=== PATIENT | female | born 1965 | race Caucasian/White ===

== ENCOUNTER 2019-06-18 12:11 | Outpatient (CLI) | payer BC, SELFPAY ==
--- NOTE | ~2019-06-18 | US_ITS ---
EXAMINATION: US right upper quadrant DATE: 06/18/2019 12:47 INDICATION: Right upper quadrant abdominal pain. Biliary a. TECHNIQUE: Multiple grayscale and Doppler ultrasound images of the abdomen were obtained. COMPARISON: CT abdomen and pelvis dated 08/01/2017 FINDINGS: The pancreatic head and body are normal in appearance. The pancreatic tail is not visualized. Main p ancreatic duct measures 2 mm in diameter at the body of the pancreas which is within normal limits. L iver has normal echogenicity and contour, with a smooth surface. No liver lesion identified. No intra hepatic biliary duct dilation suspected. Portal venous flow was seen in the hepatopetal, normal direc tion and has normal Doppler waveform. Gallbladder is not visualized and reportedly surgically absent. Common bile duct measures 5 mm diameter which is normal. Visualized portions of the right kidney dem onstrates normal contour and echogenicity with no hydronephrosis. IMPRESSION: 1. Status post cholecystectomy. Otherwise normal right upper quadrant ultrasound. Reviewed, dictated and finalized at location A. IMPRESSION: 1. Status post cholecystectomy. Otherwise normal right upper quadrant lucero callahan
[2019-06-18 13:11] LABS: Hematocrit 41.4 % (37.0-47.0); Mean Corpuscular HGB Conc 33.8 g/dl (32-36); Mean Corpuscular Hemoglobin 32.3 pg (26-34); Mean Corpuscular Volume 95.6 fl (80-100); Mean Platelet Volume 8.6 fl (7.4-10.4); Platelet Count Result 253 k/mm3 (150-375); Red Blood Count 4.33 M/mm3 (4.2-5.4); Red Cell Distribution Width 12.4 % (11.5-14.5); White Blood Count 6.4 K/mm3 (4.5-10.0)
[2019-06-18 13:43] LABS: Alanine Aminotransferase 30 U/L (4-35); Alkaline Phosphatase 67 U/L (38-126); Aspartate Amino Transferase 38 U/L (14-36); Bilirubin,Total 0.3 mg/dL (0.2-1.3); Blood Urea Nitrogen 13 mg/dL (7-17); Calcium 8.8 mg/dL (8.4-10.2); Carbon Dioxide 32 mmol/L (22-30); Chloride 102 mmol/L (98-107); Estimated Glomerular Filt Rate > 60; Glucose 76 mg/dL (65-105); Potassium 3.9 mmol/L (3.4-5.0); Sodium 137 mmol/L (137-145)
[2019-06-18 14:58] LABS: Hepatitis B Surface Antigen Negative (Negative)
[2019-06-18 15:02] LABS: Lipase 64 U/L (23-300)
[2019-06-18 15:03] LABS: HAV RESULT Negative (Negative); Hepatitis B Core IgM Result Negative (Negative)
[2019-06-18 15:15] LABS: Hepatitis C Virus Antibody Negative (Negative)
== END 2019-06-18 12:12 | disposition home or self-care (01) ==
PROVIDERS: PCP Family Medicine; Visit Provider Family Medicine
DX: R10.9 Unspecified abdominal pain (principal); R82.2 Biliuria
CPT/HCPCS: 36415; 76705; 80048; 80074; 80076; 83690; 85027

== ENCOUNTER 2020-06-10 13:12 | Outpatient (CLI) | payer BC, SELFPAY ==
--- NOTE | ~2020-06-10 | XR_ITS ---
EXAMINATION: XR finger 3rd RT min 2V EXAM DATE: 06/10/2020 13:37 INDICATION: Cystic mass distal right 3rd finger. Mass posterior to the distal interphalangeal joint. TECHNIQUE: Right 3rd finger frontal, lateral and oblique projections obtained and reviewed. There is no prior study for comparison. FINDINGS: There is large focal rounded soft tissue region over the distal interphalangeal joint witho ut any pressure erosions on the bones. There is moderate arthritis of the distal interphalangeal join t, most likely primary osteoarthritis. No radiopaque foreign bodies identified. IMPRESSION: Focal swelling or mass dorsal to the right 3rd DIP joint which has moderate osteoarthriti s. Reviewed, dictated and finalized at location A. IMPRESSION: Focal swelling or mass dorsal to the right 3rd DIP joint which has moderate osteoarthritis.
== END 2020-06-10 13:13 | disposition home or self-care (01) ==
LOC: ANHIMG 13:24
PROVIDERS: PCP Family Medicine; Visit Provider Plastic Surgery
DX: R22.31 Localized swelling, mass and lump, right upper limb (principal)
CPT/HCPCS: 73140

== ENCOUNTER → 2020-08-06 06:59 | Outpatient (CLI) | payer BC, SELFPAY ==
--- NOTE | ~2020-08-06 | MR_ITS ---
EXAMINATION: MR hand RT wo con DATE: 08/06/2020 08:13 INDICATION: Pain and swelling at the right third digit TECHNIQUE: Magnetic resonance imaging (MRI) of the right hand was performed without intravenous contr ast to include the metacarpals and digits. Sequences included sagittal, coronal, and axial proton T1- weighted FSE and T2-weighted FS FSE. COMPARISON: Right hand radiographs dated 06/10/2020 FINDINGS: There is prominent soft tissue swelling centered about the third distal interphalangeal joint. There is severe joint space loss with erosions at the base of the distal phalanx and head of the middle pha lanx. Loss of T1 marrow fat signal throughout all but the tuft of the distal phalanx and at the head and distal diaphysis of the middle phalanx. Large T2 hyperintense joint effusion which probably diste nds the joint capsule. The constellation of findings is consistent with septic arthritis and osteomye litis. Well-defined 6 x 4 x 3 mm T2 hyperintense, T1 isointense lesion at the neck of the first proxi mal phalanx with suggestion of a thin neck extending to the dorsal aspect of the distal articular billy face suggesting an intraosseous ganglion cyst. Immediately surrounding marrow signal is normal. Gem l marrow signal throughout the remainder of the bones. No fractures. Mild polyarticular osteoarthriti s with typical distribution at the radial aspect of the carpus and at multiple predominantly distal i nterphalangeal joints. No other joint effusions. The flexor and extensor tendons are normal. The talia ateral ligament complexes at the third distal interphalangeal joint are not clearly defined and may h ave been eroded by the septic process. The remainder of the collateral ligament complex at the metaca rpophalangeal and interphalangeal joints remain normal. IMPRESSION: 1. Septic arthritis at the third distal interphalangeal joint with osteomyelitis involving the majori ty of the distal phalanx and distal half of the middle phalanx. Dr. Morrissey discussed these findings with Dr. Sneed at 4:05 PM. 2. 6 x 4 x 3 mm well-defined T2 hyperintense lesion at the neck of the right first proximal phalanx w hich appears most likely to represent an intraosseous ganglion cyst. Consider correlation with plain radiographs. Reviewed, dictated and finalized at location A. IMPRESSION: 1. Septic arthritis at the third distal interphalangeal joint with osteomyeliti s involving the majority of the distal phalanx and distal half of the middle ph alanx. Dr. Morrissey discussed these findings with Dr. Sneed at 4:05 PM. 2. 6 x 4 x 3 mm well-defined T2 hyperintense lesion at the neck of the right fi rst proximal phalanx which appears most likely to represent an intraosseous lilia glion cyst. Consider correlation with plain radiographs.
== END ==
DX: M79.646 Pain in unspecified finger(s) (principal); M00.9 Pyogenic arthritis, unspecified
CPT/HCPCS: 73218

== ENCOUNTER → 2021-03-03 08:23 | Outpatient (CLI) | payer BC, SELFPAY ==
[2021-03-03 14:15] LABS: Influenza Control Positive
[2021-03-03 20:10] LABS: SARS-CoV-2 RNA PCR Negative
== END ==
PROVIDERS: PCP Family Medicine; Visit Provider Physician Assistant
DX: R68.89 Other general symptoms and signs (principal); Z20.822 Contact with and (suspected) exposure to COVID-19
CPT/HCPCS: 87804; C9803; U0003; U0005

== ENCOUNTER 2021-08-07 13:20 | Outpatient (CLI) | payer BC, SELFPAY ==
--- NOTE | ~2021-08-07 | XR_ITS ---
XR knee RT min 4V DATE: 08/07/2021 13:36 INDICATION: Injury, pain TECHNIQUE: 4 views COMPARISON: None FINDINGS: There is mild tricompartment periarticular spurring consistent with mild osteoarthritis. No fracture or dislocation or significant joint effusion is evident. No radiopaque intra-articular lo ose body or chondrocalcinosis. No periosteal reaction or bone destruction. IMPRESSION: Mild tricompartment osteoarthritis Reviewed, dictated and finalized at location A.
== END 2021-08-07 13:21 | disposition home or self-care (01) ==
PROVIDERS: PCP Family Medicine; Visit Provider Physician Assistant
DX: S89.90XA Unspecified injury of unspecified lower leg, initial encounter (principal); X58.XXXA Exposure to other specified factors, initial encounter; M17.11 Unilateral primary osteoarthritis, right knee
CPT/HCPCS: 73564

== ENCOUNTER 2023-05-24 12:27 | Outpatient (CLI) | payer BC, SELFPAY ==
--- NOTE | ~2023-05-24 | XR_ITS ---
EXAMINATION:XR cervical spine 4-5V DATE: 05/24/2023 12:59 INDICATION: Neck pain TECHNIQUE: AP, lateral, bilateral oblique and odontoid views of the cervical spine are provided. COMPARISON: 05/17/2013 FINDINGS: Bone alignment is normal. There are changes of anterior fusion from C5 through C7. The odon toid process is intact. No fracture is identified. There is mild loss of intervertebral disc space he ight at C4-5. The vertebral body heights are maintained. There is multilevel moderate facet joint ost eoarthritis. There is moderate bilateral facet joint osteoarthritis at C4-5. Prevertebral soft tissue s are normal. IMPRESSION: 1. Surgical changes and mild cervical spondylosis without acute findings. Reviewed, dictated and finalized at location F.
== END 2023-05-24 12:28 | disposition home or self-care (01) ==
PROVIDERS: PCP Family Medicine; Visit Provider Physician Assistant
DX: M47.892 Other spondylosis, cervical region (principal)
CPT/HCPCS: 72050

== ENCOUNTER 2024-01-28 15:20 | Emergency (ER) | payer BC, SELFPAY ==
[2024-01-28 15:31] VITALS: BP 142/80; PULSE 72; RESP 14; TEMP 36.3; O2SAT 100
--- NOTE | 2024-01-28 18:00 | PC.NURSE ---
PT DECIDED TO LEAVE AFTER TRIAGE OCCURED. PT AMBULATORY FROM ED WITH STEADY GAIT
== END 2024-01-28 18:11 | disposition left against medical advice (07) ==
PROVIDERS: PCP Family Medicine
DX: R11.2 Nausea with vomiting, unspecified (principal)
CPT/HCPCS: 99199

== ENCOUNTER 2024-01-30 08:06 | Emergency (ER) | payer BC, SELFPAY ==
--- NOTE | ~2024-01-30 | CT_ITS ---
Non-contrast CT scan of the Abdomen and Pelvis Clinical indication: Abdominal pain Technique: 2.5 mm axial scans were obtained through the abdomen and pelvis without intravenous or or al contrast. Dose reduction technique was used on this scan by utilizing automated exposure control a nd iterative reconstruction technique. The dose-length product (DLP) was 703.75 mGy-cm. Findings: Images through the lung bases reveal no abnormalities. There is no evidence of renal or ureteral calculi. The kidneys and the ureters are nondilated. The liver, spleen, pancreas, and adrenals appear normal. Cholecystectomy clips are present. There is no aortic aneurysm. There is no evidence of bowel obstruction. Evidence of prior bariatric surgery or fundoplication. Images through the pelvis were performed. There is no evidence of ascites or lymphadenopathy. Urinary bladder unremarkable. No pelvic mass seen. Impression: No acute abnormalities seen. Reviewed, dictated and finalized at [facility]. ER MOUTH [employer]UTTER Impression: No acute abnormalities seen.
[2024-01-30 08:24] LABS: Basophils Percent Auto 0.5 % (0.2-1.2); Eosinophils Absolute Auto 0.1 K/mm3 (0-0.3); Eosinophils Percent Auto 0.8 % (0-4.4); Hemoglobin 15.5 g/dL (12.0-15.0); Immature Granulocyte Absolute 0.02 K/mm3 (0.00-0.031); Immature Granulocyte Percent A 0.3 % (0-0.5); Lymphocytes Absolute Auto 1.89 K/mm3 (0.9-3.2); Lymphocytes Percent Auto 29.8 % (18.3-44.2); Mean Corpuscular HGB Conc 33.7 g/dl (32-36); Mean Corpuscular Hemoglobin 32.6 pg (26-34); Mean Corpuscular Volume 96.8 fl (80-100); Mean Platelet Volume 8.8 fl (7.4-10.4); Monocytes Absolute Auto 0.5 K/mm3 (0.1-0.6); Monocytes Percent Auto 7.2 % (2.6-8.5); Neutrophils Absolute Auto 3.9 K/mm3 (1.3-6.7); Neutrophils Percent Auto 61.4 % (45.5-73.1); Platelet Count Result 297 k/mm3 (150-375); Red Blood Count 4.75 M/mm3 (4.2-5.4); Red Cell Distribution Width 12.1 % (11.5-14.5); White Blood Count 6.4 K/mm3 (4.5-10.0)
[2024-01-30 08:30] VITALS: BP 135/79; PULSE 98; RESP 20; TEMP 36.4; O2SAT 100
[2024-01-30 08:37] LABS: Alanine Aminotransferase 27 U/L (6-35); Albumin Level 4.7 g/dL (3.5-5.1); Alkaline Phosphatase 78 U/L (38-126); Anion Gap 8 mmol/L (4-12); Aspartate Amino Transferase 35 U/L (14-36); Bilirubin,Total 0.8 mg/dL (0.2-1.3); Blood Urea Nitrogen 11 mg/dL (7-17); Carbon Dioxide 26 mmol/L (22-30); Chloride 105 mmol/L (98-107); Estimated CRCL calculation 60 ml/min; Estimated Glomerular Filt Rate > 60; Glucose 118 mg/dL (65-110); Lipase 191 U/L (23-300); Potassium 3.8 mmol/L (3.4-5.0); Sodium 139 mmol/L (137-145)
[2024-01-30 09:20] VITALS: BP 127/78; PULSE 78; RESP 15; O2SAT 100
[2024-01-30] MEDS: FAMOTIDINE 20 MG/2 ML VIAL IV PUSH (09:51)
[2024-01-30] MEDS: diphenhydrAMINE HCl INJ 50 MG/ML VIAL 25 MG IV PUSH (09:51)
[2024-01-30] MEDS: SODIUM CHLORIDE 0.9% IV 1,000 ML 999 ML IV CONT (09:51)
[2024-01-30] MEDS: METOCLOPRAMIDE HCL INJ 10 MG/2 ML VIAL IV PUSH (09:51)
--- NOTE | 2024-01-30 10:06 | ED_ITS ---
HPI - Abdominal Pain General Chief Complaint: Abdominal Pain Stated Complaint: vomiting, back pain, abd pain Time Seen by Provider: 01/30/24 09:02 History of Present Illness HPI narrative: Patient is a 58-year-old female who presents to the ER with right flank,, and abdominal pain. She reports her symptoms started on . Patient endorses a history of depression, cervical back surgery, gallbladder removal, breast cancer, and a gastric sleeve. She denies any recent t emperatures, chest pain, shortness of breath, signs/symptoms of recent infection, urinary symptoms. Patient recently started semaglutide and is concerned her symptoms may be related to that. Related Data Home Medications Medication Instructions Recorded Confirmed anastrozole 1 mg tablet 1 mg PO DAILY 04/10/20 12/19/23 d-mannose ea PO 04/10/20 12/19/23 hydroxychloroquine 200 mg tablet 200 mg PO DAILY 04/10/20 12/19/23 loratadine 10 mg tablet (Claritin) 10 mg PO DAILY 04/10/20 12/19/23 multivitamin 1 tablet PO DAILY 04/10/20 12/19/23 zoledronic acid 5 mg/100 mL in IV [id number] 06/09/20 12/19/23 mannitol 5 %-water intravenous piggybck (Reclast) lamotrigine 100 mg tablet 100 mg PO DAILY 04/20/23 12/19/23 fluoxetine 10 mg capsule 40 mg PO DAILY 12/19/23 12/19/23 venlafaxine 25 mg tablet 150 mg PO DAILY 12/19/23 12/19/23 Allergies Allergy/AdvReac Type Severity Reaction Status Date / Time iodine Allergy Unknown unknown Verified 01/30/24 08:28 Review of Systems Review of Systems: All systems reviewed & are unremarkable except as noted in HPI and below PMFSH Past Medical History Medical History Breast cancer Breast cancer Dizziness Fibromyalgia Localized swelling of right upper extremity Memory loss Prediabetes Recurrent UTI Surgical History Surgical History H/O gastric sleeve H/O mastectomy Post-lymphadenectomy lymphedema of arm Family History Family History Mother Family history of diabetes mellitus in first degree relative Sibling Family history of malignant neoplasm of breast in first degree relative Social History Social History Years smoked: 16 Smoking status: Former smoker Tobacco type: cigarettes Second hand tobacco smoke exposure: No Smoking end date: 02/28/94 Alcohol intake: current Drinks per week: 3 Alcohol use details: wine Substance use: never Substance use type: does not use Lack of Transportation: No Lack of Food: Never True Current Housing: I Have Housing Concerned About Future Housing: No Difficulty Paying Gas/Electric Bills: No Difficulty Paying for Meds: No Currently Unemployed: No Education: Bachelor's Degree Difficulty w/ Childcare or Family Care: No Living arrangements: with family Spiritual care concerns: No Agree to blood products: Yes Exam Narrative: GENERAL: Well appearing, well-nourished, non-toxic, in mild acute distress d/t pain. HEAD: Normocephalic, atraumatic. NECK: Supple. No adenopathy, no masses. RESPIRATORY: Airway patent, respirations nonlabored. Clear to auscultation bilaterally, no rales, rhonchi, wheezing. CARDIOVASCULAR: Regular rate and rhythm without murmurs, rubs, or gallops. Peripheral pulses 2+ and equal bilaterally. ABDOMINAL: Soft, tender bilateral lower quadrants with palpation, nondistended, no hepatosplenomegaly. Normoactive BS. MUSCULOSKELETAL: Moves all extremities. Strength/ROM intact without gross deformities. SKIN: Warm, dry, normal color. No rashes. NEURO: A&O X3. Speech clear. Cranial nerves II-XII grossly intact. No ataxic movements. PSYCHIATRIC: Appropriate mood and affect. Normal interaction. Course Vital Signs Vital signs: Vital Signs Temperature 36.4 C L 01/30/24 08:30 Pulse Rate 98 01/30/24 08:30 Respiratory Rate 20 01/30/24 08:30 Blood Pressure 135/79 01/30/24 08:30 Pulse Oximetry 100 01/30/24 08:30 Oxygen Delivery Room Air 01/30/24 08:30 Temperature 36.4 C L 01/30/24 08:30 Pulse Rate 78 01/30/24 09:20 Respiratory Rate 15 01/30/24 09:20 Blood Pressure 127/78 12/02/24 09:20 Pulse Oximetry 100 01/30/24 09:20 Oxygen Delivery Room Air 01/30/24 08:30 MDM - Abdominal Pain MDM Narrative Medical decision making narrative: Patient is a 58-year-old female who presents to the ER with right flank,, and abdominal pain. She reports her symptoms started on . Patient endorses a history of depression, cervical back surgery, gallbladder removal, breast cancer, and a gastric sleeve. She denies any recent temperatures, chest pain, shortness of breath, signs/symptoms of recent infection, urinary symptoms. Patient recently started semaglutide and is concerned her symptoms may be related to that. Labs Ordered: CBC, CMP, lipase, UA, COVID/flu, lactic acid Imaging Ordered: CT abdomen/pelvis without contrast Results: Pt's lactic acid was 3.0, so 1L NS IV bolus will be given. Pt's other bloodwork and urinalysis were unremarkable. Diagnosis: mild dehydration leading to back pain/abdominal pain Patient Education/Shared MDM: Results shared with the patient. She and her are in agreement with plan to discharge home. Patient will be given a prescription for Bentyl and Zofran and advised to drink lots of water. She and her verbalize understanding of plan. 1145-Repeat lactic acid was 0.9, which is WNL. Pt will be discharged home at this time. Differential Diagnosis Differential diagnosis: Likely abdominal pain, acute appendicitis, calculus of kidney, constipation, diverticulitis, gastroenteritis, pancreatitis and small bowel obstruction Lab Data Attestation: I reviewed the patient's lab results. 01/30/24 08:18 01/30/24 08:18 Labs: Lab Results 01/30/24 01/30/24 01/30/24 Range/Units 08:18 09:32 10:35 WBC 6.4 (4.5-10.0) K/mm3 RBC 4.75 (4.2-5.4) M/mm3 Hgb 15.5 H (12.0-15.0) g/dL Hct 46.0 (37.0-47.0) % MCV 96.8 (80-100) fl MCH 32.6 (26-34) pg MCHC 33.7 (32-36) g/dl RDW 12.1 (11.5-14.5) % Plt Count 297 (150-375) k/mm3 MPV 8.8 (7.4-10.4) fl Immature Gran % (Auto) 0.3 (0-0.5) % Neut % (Auto) 61.4 (45.5-73.1) % Lymph % (Auto) 29.8 (18.3-44.2) % [place] % (Auto) 7.2 (2.6-8.5) % Eos % (Auto) 0.8 (0-4.4) % Baso % (Auto) 0.5 (0.2-1.2) % Lymph # (Auto) 1.89 (0.9-3.2) K/mm3 [place] # (Auto) 0.5 (0.1-0.6) K/mm3 Eos # (Auto) 0.1 (0-0.3) K/mm3 Baso # (Auto) 0.0 (0.0-0.1) K/mm3 Abs Immat Gran (auto) 0.02 (0.00-0.031) K/mm3 Absolute Neuts (auto) 3.9 (1.3-6.7) K/mm3 Absolute Nucleated RBC 0.000 (0.0-0.012) K/mm3 Nucleated RBC % 0.0 (0.0-0.2) % Sodium 139 (137-145) mmol/L Potassium 3.8 (3.4-5.0) mmol/L Chloride 105 (98-107) mmol/L Carbon Dioxide 26 (22-30) mmol/L Anion Gap 8 (4-12) mmol/L BUN 11 (7-17) mg/dL Creatinine 0.90 (0.7-1.0) mg/dL Estim Creat Clear Calc 60 ml/min Estimated GFR > 60 (59 - ) Glucose 118 H (65-110) mg/dL Lactic Acid 3.0 H (0.7-2.0) mmol/L Calcium 9.0 (8.4-10.2) mg/dL Total Bilirubin 0.8 (0.2-1.3) mg/dL AST 35 (14-36) U/L ALT 27 (6-35) U/L Alkaline Phosphatase 78 (38-126) U/L Total Protein 8.0 (6.3-8.2) g/dL Albumin 4.7 (3.5-5.1) g/dL Lipase 191 (23-300) U/L Urine Color Yellow (Yellow) Urine Appearance Clear (Clear) Urine pH 8.5 (5.0-9.0) Ur Specific [place] 1.006 (1.001-1.035) Urine Protein Negative (Negative) mg/dL Urine Glucose (UA) Negative (Negative) mg/dL Urine Ketones Negative (Negative) mg/dL Ur Blood (Man) Negative (Negative) Urine Nitrate Negative (Negative) Urine Bilirubin Negative (Negative) Urine Urobilinogen 0.2 (<2.0) mg/dL Leukocyte Esterase Rfl Negative (Negative) BERNA/UL Influenza A (RT-PCR) Negative (Negative) Influenza B (RT-PCR) Negative (Negative) RSV (RT-PCR) Negative (Negative) SARS-CoV-2 RNA (RT-PCR) Negative (Negative) Imaging Data Attestation: I personally reviewed and interpreted this imaging study as follows: Radiologist's impression: ITS Impressions Abdomen/Pelvis CT 01/30/24 09:53 Impression: No acute abnormalities seen. Discharge Plan Discharge Clinical Impression: Mild dehydration, Back pain, Abdominal pain Patient Disposition: Home, Self-Care Condition: Stable Instructions: Antibiotic Form, Dehydration (ED) Additional Instructions: Patient is in agreement with current treatment plan. All questions answered. Vital signs stable at time of discharge. Please return to the ER with an worsen ing symptoms. Follow-up with primary care provider in the next 2-3 days. Take all medications as prescribed. Prescriptions: New dicyclomine 10 mg capsule 10 mg PO TID Qty: 10 0RF ondansetron 4 mg tablet,disintegrating 4 mg PO Q8H PRN (Reason: nausea and vomiting) Qty: 10 0RF No Action zoledronic [id number] [Reclast] 5 mg/100 mL piggyback IV [id number] lamotrigine 100 mg tablet 100 mg PO DAILY modafinil 100 mg tablet 100 mg PO QAM Qty: 30 0RF anastrozole 1 mg tablet 1 mg PO DAILY hydroxychloroquine 200 mg tablet 200 mg PO DAILY multivitamin Tablet 1 tablet PO DAILY d-mannose Powder PO loratadine [Claritin] 10 mg tablet 10 mg PO DAILY fluoxetine 10 mg capsule 40 mg PO DAILY venlafaxine 25 mg tablet 150 mg PO DAILY Wegovy 1 mg/0.5 mL pen injector 1 mg subcut WEEKLY Qty: 2 1RF cyclobenzaprine 10 mg tablet 10 mg PO TID Qty: 30 0RF Follow-up/Referrals: Elizabeth Santillan MD [Primary Care Provider] - Time of Disposition: 11:50
[2024-01-30 10:17] LABS: Influenza A QL RT-PCR Negative (Negative); Influenza B QL RT-PCR Negative (Negative); RSV RNA, RT-PCR Negative (Negative); SARS-CoV-2 RNA PCR Negative (Negative)
[2024-01-30 10:44] LABS: Add Urine Microscopic? NO; Appearance Urine Clear (Clear); Bilirubin Urine Negative (Negative); Blood Urine Negative (Negative); Color Urine Yellow (Yellow); Glucose Urine UA Negative (Negative); Ketones Urine Negative (Negative); Leukocyte Esterase Ur Negative LEU/UL (Negative); Nitrate Urine Negative (Negative); Protein Urine Negative (Negative); Specific Grav Ur 1.006 (1.001-1.035); Urobilinogen Urine 0.2 mg/dL (<2.0); pH Urine 8.5 (5.0-9.0)
[2024-01-30 11:15] VITALS: BP 127/72; PULSE 74; RESP 18; O2SAT 100
[2024-01-30 11:21] LABS: Reflex Lactic Acid Yes or No Add Lactic
[2024-01-30 11:36] LABS: Lactic Acid 0.9 mmol/L (0.7-2.0)
== END 2024-01-30 11:58 | disposition home or self-care (01) ==
PROVIDERS: Student in an Organized Health Care Education/Training Program; Emergency Provider Registered Nurse; PCP Family Medicine
DX: E86.0 Dehydration (principal); M54.9 Dorsalgia, unspecified; R10.32 Left lower quadrant pain; R10.31 Right lower quadrant pain; R73.03 Prediabetes; M79.7 Fibromyalgia; F32.A Depression, unspecified; Z98.84 Bariatric surgery status; Z85.3 Personal history of malignant neoplasm of breast; Z87.891 Personal history of nicotine dependence; Z87.440 Personal history of urinary (tract) infections; Z90.10 Acquired absence of unspecified breast and nipple; Z79.899 Other long term (current) drug therapy
CPT/HCPCS: 36415; 74176; 80053; 81003; 83605; 83690; 85025; 87637; 96361; 96374; 96375; 99284; J1200; J2765; J7030

== ENCOUNTER 2024-09-20 08:11 | Outpatient (CLI) | payer BC, SELFPAY ==
[2024-10-16 11:02] VITALS: BMI 33.5
--- NOTE | 2024-10-16 11:02 | WPDSLEEPSTUD ---
Sleep Study Date of Study: 09/20/24 Ordering Provider: THOMAS Aggarwal Interpreting Physician: Marie Beaver DO Sleep Study Type: Split Polysomnogram Height: 1.63 m Weight: 88.451 kg Body Mass Index: 33.5 Neck Circumference (inches): 15 [place]: 16 Reason for Sleep Study Daytime hypersomnia Sleep History The patient is a 58-year-old female who had a sleep study ordered by the pulmonary group for re-evaluation of sleep apnea. The patient was diagnosed with sleep apnea over 26 years ago. She has tried CPAP and BiPAP in the past. She recently restarted using CPAP but has developed aerophagia. She is interested in Inspire. The patient rarely awakens from sleep short of breath. She denies awakening at night with heartburn, belching, or cough. She constantly snores loudly enough that others complain. She occasionally has trouble sleeping when she has a cold. She rarely wakes up gasping for air throughout the night. She frequently has breathing problems at night observed by herself or others. She rarely sweats excessively at night. She denies having heart palpitations or irregular heartbeats during the night. She frequently falls asleep during the day but never while driving. She denies sleep paralysis, cataplexy, and hypnagogic/hypnopompic hallucinations. She occasionally has trouble at school or work due to sleepiness. She denies feeling afraid of going to sleep. She rarely has nightmares. She occasionally remembers her dreams. She rarely has thoughts racing through her mind. She frequently feels sad or depressed. She rarely has anxiety. She occasionally has muscular tension. She frequently notices parts of her body jerk. She denies kicking during the night. She denies having crawling and aching feelings in her legs and denies having leg pain during the night. She denies awakening with morning jaw pain. She is frequently bothered by pain during the day but never awakened by pain during the night. She occasionally wakes up feeling stiff in the morning. She rarely wakes up with sore or achy muscles. She occasionally wakes up with pain in the neck, spine, and other joints. She goes to bed at 9 p.m. every night. It takes her a few minutes to fall asleep. She wakes up 2 to 3 times throughout the night due to her CPAP making noise and she is able to fall back asleep within a few minutes. She wakes up at 6 a.m. on weekdays and at 7 a.m. on the weekends. She typically gets 8 to 9 hours of sleep per night. She will stay in bed for 15 minutes after waking up in the morning. She currently lives with her . She denies consuming any caffeinated beverages within 2 hours of bedtime. She denies engaging in physical exercise before bedtime. She will occasionally read before falling asleep. She will take naps in the afternoon or the evening, but they are not refreshing. She consumes 10 caffeinated beverages per day. She quit smoking cigarettes 30 years ago. She consumes an alcoholic beverage 2 times per month. She denies recreational drug use. [facility] Past Medical History Medical History Hypersomnolence Fibromyalgia Dizziness Breast cancer Memory loss Localized swelling of right upper extremity Breast cancer Recurrent UTI Prediabetes Surgical History Surgical History H/O gastric sleeve H/O mastectomy Post-lymphadenectomy lymphedema of arm Family History Family History Mother Family history of diabetes mellitus in first degree relative Sibling Family history of malignant neoplasm of breast in first degree relative Social History Social History Years smoked: 16 Smoking status: Former smoker Tobacco type: cigarettes Second hand tobacco smoke exposure: No Smoking end date: 02/28/94 Alcohol intake: current Drinks per week: 3 Alcohol use details: wine Substance use: never Substance use type: does not use Lack of Transportation: No Lack of Food: Never True Current Housing: I Have Housing Concerned About Future Housing: No Difficulty Paying Gas/Electric Bills: No Difficulty Paying for Meds: No Currently Unemployed: No Education: Bachelor's Degree Difficulty w/ Childcare or Family Care: No Living arrangements: with family Spiritual care concerns: No Agree to blood products: Yes Medications Home Medications ?Medication ?Instructions ?Recorded ?Confirmed ?Type anastrozole 1 mg tablet 1 mg PO DAILY 04/10/20 07/20/24 History d-mannose ea PO 04/10/20 07/20/24 History hydroxychloroquine 200 mg tablet 200 mg PO DAILY 04/10/20 07/20/24 History multivitamin 1 tablet PO DAILY 04/10/20 07/20/24 History zoledronic acid 5 mg/100 mL in IV [id number] 06/09/20 07/20/24 History mannitol 5 %-water intravenous piggybck (Reclast) fluoxetine 10 mg capsule 40 mg PO DAILY 12/19/23 07/20/24 History venlafaxine 25 mg tablet 150 mg PO DAILY 12/19/23 07/20/24 History modafinil 100 mg tablet 100 mg PO QAM #60 tabs 07/20/24 07/20/24 Rx modafinil 100 mg tablet 100 mg PO QAM 90 days #90 tabs 09/11/24 Rx Sleep Procedure A full night split study using the [employer] multi-channel system recorded the standard physiologic parameters including EEG, EOG, submentalis EMG, anterior tibialis EMG, EKG, body position, nasal and oral airflow using nasal pressure sensor and thermistor.? Respiratory parameters of chest and abdominal movements were recorded with Respiratory Inductance Plethysmography belts. Oxygen saturation was recorded by pulse oximetry. Video monitoring was also performed. Sleep stages, periodic limb movements, and EEG arousals were scored in 30 second epochs according to the criteria of the AASM Scoring Manual. The Apnea-Hypopnea Index was calculated using CMS guidelines for definition of hypopnea with 4% O2 desaturations while scoring respiratory events. Sleep Architecture During the diagnostic portion of the study, the total recording time was 159.8 minutes. The total sleep time was 139.0 minutes. Sleep latency was 15.3 minutes.? REM sleep was not achieved during this portion of the study. Sleep Efficiency was 87.0%. The patient had 5 awakenings for an awakening index of 2.2. Wake after sleep onset time was 5.5 minutes. The patient spent 3.5 minutes, 2.5% of total sleep time in Stage N1. The patient spent 108.5 minutes, 78.1% in Stage N2. The patient spent 27.0 minutes, 19.4% in Stage N3. The patient spent 0.0 minutes, 0.0% in Stage REM sleep. At 12:35:09 AM the patient was placed on PAP treatment and was titrated at pressures ranging from 5 cm H20 up to 18/13 cm H20. During the treatment portion of the study, the total recording time was 320.7 minutes.? The total sleep time was 293.0 minutes. Sleep latency was 3.0 minutes. REM latency was 123.0 minutes. Sleep Efficiency was 91.4%. Wake after Sleep Onset time was 25.0 minutes. The patient spent 25.0 minutes, 8.5% of total sleep time in Stage N1. The patient spent 234.5 minutes, 80.0% in Stage N2. The patient spent 7.5 minutes, 2.6% in Stage N3. The patient spent 26.0 minutes, 8.9% in Stage REM. Respiratory Analysis During the diagnostic portion of the study, the patient had 108 hypopneas and 29 obstructive apneas for an overall Apnea Hypopnea Index of 59.1 events per hour. The REM Apnea Hypopnea Index was 0. The NREM Apnea Hypopnea Index was 59.1. The patient had a Central Apnea Hypopnea Index of 0. There was no evidence of Darnell-De La Torre Respirations. During the treatment portion of the study, the patient had 35 hypopneas, 17 obstructive apneas, 3 mixed apneas, and 30 central apneas for an overall Apnea Hypopnea Index of 17.4 events per hour. The REM Apnea Hypopnea Index was 2.3. The NREM Apnea Hypopnea Index was 18.9. The patient had a Central Apnea Hypopnea Index of 6.1. There was no evidence of Darnell-De La Torre Respirations. The patient was started on CPAP 5 cm H2O and titrated to BPAP 18/13 cm H2O due to obstructive/central apneas and hypopneas. The patient was able to fall asleep starting on CPAP 5 cm H2O. The patient was able to achieve REM sleep starting on CPAP 9 cm H2O. The lowest residual AHI the patient was able to achieve during the titration portion of the study was 7.4 on CPAP 9 cm H2O. On CPAP 9 cm H2O, the patient spent 47 minutes in NREM and 17.5 minutes in REM with 2 obstructive apneas, 1 central apnea and 5 hypopneas, resulting in an AHI of 7.4. The patient had a sleep efficiency of 94.2% on this pressure setting. Arousals During the diagnostic portion of the study, there were a total of 110 arousals for an arousal index of 47.5.? There were 46 respiratory arousals for an index of 19.9. There were 12 periodic limb movement arousals for an index of 5.2.? There were 19 isolated limb movement arousals for an index of 8.2. There were 37 spontaneous arousals for an index of 16.0. During the treatment portion of the study, there were a total of 227 arousals for an index of 46.5.? There were 54 respiratory arousals for an index of 11.1. There were 45 periodic limb movement arousals for an index of 9.2.? There were 35 isolated limb movement arousals for an index of 7.2. There were 98 spontaneous arousals for an index of 20.1. Periodic Limb Movements During the diagnostic portion of the study, the patient had 32 isolated limb movements with an index of 13.8. The patient had 24 periodic limb movements with an index of 10.4. The patient had a total of 56 limb movements with a total limb movement index of 24.2. During the treatment portion of the study, the patient had 77 isolated limb movements with an index of 15.8. The patient had 123 periodic limb movements with an index of 25.2, which is elevated (normal < 15). The patient had a total of 200 limb movements with a total limb movement index of 41.0. Oximetry Data During the diagnostic portion of the study, the patient had an average oxygen saturation of 96.8% in wake with a minimum oxygen saturation of 92% and a maximum oxygen saturation of 99%. The patient had an average oxygen saturation of 94.8% in sleep with a minimum oxygen saturation of 85.0% and a maximum oxygen saturation of 100.0%. The patient had 141 oxygen desaturations resulting in an Oxygen Desaturation Index of 60.9. The patient spent 2.5 minutes, 1.6% of total sleep time with an oxygen saturation less than 88%. During the treatment portion of the study, the patient had an average oxygen saturation of 97.1% in wake with a minimum oxygen saturation of 92.0% and a maximum oxygen saturation of 99.0%. The patient had an average oxygen saturation of 96.3% in sleep with a minimum oxygen saturation of 87.0% and a maximum oxygen saturation of 99.0%. The patient had 80 oxygen desaturations resulting in an Oxygen Desaturation Index of 16.4. The patient spent 0.1 minutes of total sleep time with an oxygen saturation less than 88%. Snoring Profile Loud snoring was present in the baseline portion of the study. The snoring resolved once the patient was titrated to CPAP 9 cm H2O. Cardiac Profile The EKG lead showed normal sinus rhythm with rare PVCs. During the diagnostic portion of the study, the average pulse rate was 67.0 bpm.? The minimum pulse rate was 59.0 bpm. The maximum pulse rate was 80.0 bpm. During the treatment portion of the study, the average pulse rate was 66.1 bpm.? The minimum pulse rate was 60.0 bpm. The maximum pulse rate was 87.0 bpm. EEG Profile No signs of seizure activity seen. Assessment and Plan Assessment and Plan (1) Obstructive sleep apnea: Code(s): G47.33 - Obstructive sleep apnea (adult) (pediatric) Status: Acute Assessment and Plan: In the baseline portion of the study, the patient had an overall AHI of 59.1 with desaturation down to 85%. This is consistent with severe sleep apnea. The patient was started on CPAP 5 cm H2O and titrated to BPAP 18/13 cm H2O due to obstructive/central apneas and hypopneas. I recommend that the patient be prescribed CPAP 9 cm H2O, size medium Resmed AirTouch F20 full face mask, CPAP filters/tubing and heated humidity. If the patient does not want to continue using CPAP, she may be a candidate for Inspire depending on the BMI criteria (most insurances require <32). This should be used with all episodes of sleep.? Compliance should be reviewed within 31-90 days of starting therapy for usage greater than 4 hours per night greater than 70% of the nights. The patient should be asked about symptoms such as?excessive daytime sleepiness, quality of sleep, decreased nocturia, increased?mental functioning such as memory, mood, and concentration. Data The data obtained during this sleep study is adequate for interpretation. Certification This sleep study has been reviewed by a board certified sleep medicine physician.
== END 2024-09-21 06:35 | disposition home or self-care (01) ==
LOC: ANHCSM 08:15
PROVIDERS: PCP Family Medicine; Visit Provider Physician Assistant
DX: G47.33 Obstructive sleep apnea (adult) (pediatric) (principal)
CPT/HCPCS: 95811